=== PATIENT | male | born 1970 | race Caucasian/White ===

== ENCOUNTER 2017-10-13 07:40 | Observation (INO) ==
--- NOTE | 2017-10-13 08:01 | Emergency Department Note ---
ED Disposition Clinical Impression: A-fib Qualifiers: Atrial fibrillation type: paroxysmal Qualified Code(s): I48.0 - Paroxysmal atrial fibrillation Chest pain Qualifiers: Chest pain type: precordial pain Qualified Code(s): R07.2 - Precordial pain Disposition: Admitted as Observation Condition on Discharge: Good Referrals: Erasmo Harrison MD [Primary Care Provider] - - Critical Care Critical Care Time: No Attestation: On 10/13/17, the high probability of a clinically significant, sudden or life threatening deterioration of the following system(s) required my full and direct attention, intervention and personal management. The time I documented below is in addition to time spent performing reported procedures but includes the following listed in this critical care notation. Medical Decision Making - Medical Records Medical records reviewed: Yes: I reviewed the patient's medical records. - Ric Inquiry Pt receiving controlled substance: No Vital Signs: 10/13/17 07:41 Pulse Rate [Right Radial] 152 H Respiratory Rate 22 Blood Pressure [Right Arm] 146/99 Blood Pressure Mean [Right Arm] 114 Blood Pressure Source [Right Arm] Automatic Cuff Blood Pressure Position [Right Arm] Supine 02 Sat by Pulse Oximetry 100 Oxygen Delivery Method Room Air Orders (Tests/Meds): ED MEDICATIONS Generic Name Dose Route Start Last Admin Trade Name Freq PRN Reason Stop Dose Admin Aspirin 324 mg 10/13/17 07:57 Aspirin 81mg Chewable Tablet PO 10/13/17 07:58 ONCE ONE ORDERS Category Date Time Status Chest XR -- portable [XR chest portable] Stat Exams 10/13/17 07:52 Ordered Cardiac Enzymes Stat Lab 10/13/17 07:52 Ordered Complete Blood Count Auto Diff Stat Lab 10/13/17 07:52 Ordered Comprehensive Metabolic Panel Stat Lab 10/13/17 07:52 Ordered Thyroid Stimulating Hormone Stat Lab 10/13/17 07:52 Ordered - Radiology Data #1 Image(s): Chest Image Reviewed: Yes I reviewed the patient's radiology image Preliminary Findings: Normal/NAD - ECG Data Tracing #1 I reviewed this ECG and interpreted as documented below: ECG normal with no acute: arrhythmias, ischemia, conduction abnormalities, chamber hypertrophy Arrhythmias present: afib Ischemic changes: non-specific ST-T wave changes - Physician Consults Physician Consulted: [email or web address] Reason -: Admission Additional Consult: costa Reason -: Pt condition Chest Pain HPI - General Chief Complaint: Chest Pain Stated Complaint: chest pain Time Seen by Provider: 10/13/17 07:58 Mode of Arrival: Family Vehicle Source of Information: Patient, Spouse, Medical Record Limitations: No Limitations Description of Symptoms (Recalled from ER Triage Doc. by RN): PT C/O RIGHT CHEST PAIN WHEN HE COUGHS AND FEEL LIKE HIS HEART IS BEATING OUT OF HIS CHEST. PT STATES HE HAD THE SAME FEELING LASTNIGHT BUT IT QUIT AND RETURNED THIS MORNING. - History of Present Illness HPI narrative: pt with irreg ht rate and ant chest pain last pm and again this am - no known ht disease and has htn - MD complaint: chest pain indicative of cardiac Onset (ago): hour(s) Duration: intermittent Activity at onset: during rest Pain location: left chest Severity: moderate Quality: sharp Associated symptoms: palpitations Risk Factors for CAD: Hypertension, Family Hx of CAD Treatments prior to or on arrival for Cardiac Chest Pain: beta blockers - JACK Score Non-Stemi Age of patient: Less than 65 yrs Number of risk factors for CAD: Presence of 3 or more Prior coronary artery stenosis(seen in coronary angiography): Less than 50% ST-Segment deviation on ECG (more than 1 min): Absent Prior aspirin intake: ASA intake in the last 7 days Severe anginal chest pain: No or one episode in last 24 hours Elevated cardiac markers(CK-MB or troponin): Absent Non-Stemi Risk Score: 2 - Related Data Home Medications Medication Instructions Recorded Confirmed Aspirin 81 mg PO DAILY 10/13/17 10/13/17 Atorvastatin Calcium [Atorvastatin 10 mg PO DAILY 10/13/17 10/13/17 10mg Tab] Metoprolol Succinate 25 mg PO DAILY 10/13/17 10/13/17 Ubidecarenone/Vit E Acet [Co Q-10 1 each PO DAILY 10/13/17 10/13/17 100 mg Softgel] Allergies Allergy/AdvReac Type Severity Reaction Status Date / Time No Known Drug Allergies Allergy Unknown Verified 10/13/17 07:48 [NKDA] [facility] History I have reviewed the patient's past medical history: Yes Medical History: Denies:: Cancer, Diabetes Mellitus Type 1, Diabetes Mellitus Type 2, MRSA Amputation: No Fractures: No - Social History Alcohol Intake: current Alcohol Intake Frequency:: 3 or more drinks per day Substance Use Type: marijuana Last Used Substance: hours (ago) - Psychiatric History Expresses thoughts of harming self/others: None Suicide Plan Description: No Plan ROS Obtained: Yes All systems reviewed & no additional complaints - Constitutional Constitutional: Denies fever(s) - Eyes Eyes: Denies change in vision - ENT Ears, Nose, Mouth, and Throat: Denies sore throat - Cardiovascular Cardiovascular: Reports chest pain, Reports palpitations - Respiratory Respiratory: No cough - Gastrointestinal Gastrointestingal: Denies: abdominal pain - Genitourinary Male Genitourinary: Denies hematuria - Musculoskeletal Musculoskeletal: Denies joint pain - Integumentary/Breasts Skin/Breast: Denies rash - Neurologic Neurologic: Denies seizure-like activity Physical Exam - General General appearance: in no apparent distress - Head Head exam: normocephalic - Eye Eye exam: Present: PERRL, EOMI - ENT ENT exam: Present: mucous membranes moist - Neck Neck exam: Present: trachea midline - Respiratory Respiratory exam: Present: normal lung sounds bilaterally. Absent: respiratory distress - Cardiovascular Cardiovascular exam: Present: irregular rhythm, systolic murmur, other (no def bruits ) - Abdominal Exam Abdominal exam: Present: soft - Neurological Exam Neurological exam: Present: alert, oriented X3, CN II-XII intact - Psychiatric Psychiatric exam: Present: normal affect - Skin Skin exam: Present: rash
[2017-10-13 08:04] LABS: Basophils % 0.3 % (0.1-2.0); Eosinophils # 0.2 K/mm3 (0.0-0.4); Eosinophils % 2.3 % (0.1-12.0); Hematocrit 51.1 % (42.0-52.0); Lymphocytes # 3.1 K/mm3 (0.7-4.5); Lymphocytes % 45.9 K/mm3 (10-50); Mean Corpuscular HGB Conc 33.3 g/dL (31.8-35.4); Mean Corpuscular Hemoglobin 29.1 pg (27.0-31.2); Mean Corpuscular Volume 87.3 fl (80-94); Mean Platelet Volume 7.6 fl (7.4-10.4); Monocytes # 0.5 K/mm3 (0.1-1.0); Monocytes % 7.9 % (1.7-9.3); Neutrophils % 43.5 % (37.0-80.0); Platelet Count 273 K/mm3 (142-424); Red Blood Count 5.86 M/mm3 (4.60-6.20); Red Cell Distribution Width 14.7 % (11.5-17.5); White Blood Count 6.8 K/mm3 (4.8-10.8)
[2017-10-13 08:30] LABS: Alanine Aminotransferase 36 U/L (12-78); Albumin Level 3.9 gm/dL (3.4-5.0); Albumin/Globulin Ratio 1.1 (1.1-1.8); Alkaline Phosphatase 68 U/L (46-116); Anion Gap 15.3 mEq/L (5-15); Aspartate Amino Transferase 24 U/L (15-37); Bilirubin,Total 0.7 mg/dL (0.2-1.0); Blood Urea Nitrogen 16 mg/dL (7-18); Calcium 9.8 mg/dL (8.5-10.1); Carbon Dioxide 24 mmol/L (21.0-32.0); Chloride 106 mmol/L (98-107); Creatine Kinase 237 U/L (39-308); Globulin 3.6 gm/dl (1.3-3.2); Glucose 131 mg/dL (74-106); Potassium 3.3 mmoL/L (3.5-5.1); Sodium 142 mmol/L (136-145); Thyroid Stimulating Hormone 1.76 uIU/ml (0.358-3.740); Total Protein,Serum 7.5 gm/dL (6.4-8.2)
--- NOTE | 2017-10-13 09:05 | Consult Report ---
History of Present Illness Consult date: 10/13/17 Requesting physician: Erasmo Harrison Consult reason: atrial fibrillation Chief complaint: Chest pain, shortness of breath and dizziness Additional Medical History:: 1. Hypertension 2. Hyperlipidemia 3. Polysubstance abuse a. Marijuana (last used one day prior to admission) b. Alcohol use (2-3 beers daily and occasional more on weekends) 4. Strong family history of Coronary Disease (Father: age 50 [place]- living and Brother: 50 [place] living) 5. No history of Coronary Artery Disease, Atrial fibillation or CVA 6. Overweight History of present illness: 47 year old white male presents to emergency department with right sided chest pain and shortness of breath. 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 Pt woke up this morning with heavy shooting pain on the right side of the chest. Pt complained of increase shortness of breath with this episode of pain. Pt complained of "fullness in chest and felt like heart was racing" accompanied with dizziness. Pt stated pain was 5/10 on pain scale prior to arriving at the Emergency department. Pt denies chest pain or shortness of breath at this time. Initial EKG reveals Atrial Fibrillation with rate 125bpm. Pt's heart rate did rise to over 150bpm prior to initiating Cardizem (per ED physician). security monitor reveals sinus rhythm with intermittent atrial fibrillation with rate 110 -120's. Baseline labs in the Emergency department were unremarkable except of K 3.3 (L) and Troponin <0.02. D-dimer pending at this time. Pt admitted on Medical floor for new onset Atrial fibrillation, chest pain and shortness of breath. Pt placed on Cardizem drip Pt has no known history of coronary artery disease. Pt does have history of Hypertension and Hyperlipidemia , managed by daily medication regimen. Pt is a polysubstance abuser of marijuana and alcohol. Last usage of marijuana was one day ago. Drinks 2-3 beers daily and occasionally more on the weekends. Pt is a non-smoker. [facility] History Medical History: Reports:: Hyperlipidemia, Hypertension Denies:: Atrial Fibrillation, Cancer, Coronary Artery Disease, Cerebrovascular Accident, Diabetes Mellitus Type 1, Diabetes Mellitus Type 2, MRSA, Transient Ischemic Attacks (TIA) Other Medical History: Denies: Thyroid Disease, Unexplained Bleeding Other Surgeries: Yes: No Previous Surgery, Other. No: Angiogram, Angioplasty, Coronary Stent Amputation: No Fractures: No Comment: Hemrrhoid surgery - *Social History Alcohol Intake: current Alcohol Intake Frequency:: 3 or more drinks per day Substance Use Type: marijuana Last Used Substance: hours (ago), days (ago) - Psychiatric History Expresses thoughts of harming self/others: None Suicide Plan Description: No Plan Pschychiatric History:: Denies:: Anxiety *Family Hx:: Heart Attack Comment: father (50) [place]. Brother (50) [place] Meds Home Medications Medication Instructions Recorded Confirmed Type Aspirin 81 mg PO DAILY 10/13/17 10/13/17 History Atorvastatin Calcium [Atorvastatin 10 mg PO DAILY 10/13/17 10/13/17 History 10mg Tab] Metoprolol Succinate 25 mg PO DAILY 10/13/17 10/13/17 History Ubidecarenone/Vit E Acet [Co Q-10 1 each PO DAILY 10/13/17 10/13/17 History 100 mg Softgel] Allergies Allergy/AdvReac Type Severity Reaction Status Date / Time No Known Drug Allergies Allergy Unknown Verified 10/13/17 07:48 [NKDA] Review of Systems - Constitutional Reports fatigue - *Cardiovascular Reports chest pain, Reports chest pain at rest, Reports shortness of breath, Reports shortness of breath with activity, Reports irregular heart rhythm, Reports lightheadedness, Reports rapid, pounding, or irregular heartbeat, Reports fast heart rate - *Respiratory Reports cough, Reports shortness of breath, Reports shortness of breath with activity, Denies stridor, Denies wheezing - *Gastrointestinal Reports belching, Reports heartburn, Denies abdominal pain, Denies bloating, Denies constipation, Denies bright, red blood in stools - *Genitourinary Denies difficulty urinating - *Musculoskeletal Denies abnormal walking - Integumentary/Breasts Denies lesions - *Neurologic Reports dizziness, Denies seizure-like activity Exam Vital signs and Labs for Last 24 Hours: Temp Pulse Resp BP Pulse Ox 98.4 F 92 H 18 106/60 97 10/13/17 08:38 10/13/17 08:38 10/13/17 08:38 10/13/17 08:38 10/13/17 08:35 - Constitutional no acute distress, obese - *Routine Neck Exam Present: supple, full ROM, normal carotid upstroke, trachea midline. Absent: JVD, carotid bruit, swelling - *Routine Respiratory Exam Present: accessory muscle use. Absent: CTA bilaterally, rhonchi, stridor, wheezes, crackles - *Routine Cardiovascular Exam Present: RRR, Normal S1, Normal S2. Absent: murmur, gallop, rubs - *Routine Abdominal Exam Absent: tenderness, distended, guarding, mass - *Routine Extremities Exam Present: full ROM, pulses intact, normal capillary refill. Absent: cyanosis, clubbing, edema, calf tenderness, tenderness - *Routine Neurological Exam Present: alert, oriented X3, CN II-XII intact, moving all extremities, normal speech. Absent: tremors Assessment and Plan (1) Chest pain Start date: 10/13/17 Current visit: Yes Status: Acute Qualifiers: Chest pain type: precordial pain Qualified Code(s): R07.2 - Precordial pain Category: Medical Code(s): R07.9 - Chest pain, unspecified (2) A-fib Start date: 10/13/17 Current visit: Yes Status: Acute Qualifiers: Atrial fibrillation type: paroxysmal Qualified Code(s): I48.0 - Paroxysmal atrial fibrillation Category: Medical Code(s): I48.91 - Unspecified atrial fibrillation (3) Hypokalemia Current visit: Yes Status: Acute Category: Medical Code(s): E87.6 - Hypokalemia (4) HTN (hypertension) Current visit: Yes Status: Chronic Category: Medical Code(s): I10 - Essential (primary) hypertension (5) Hyperlipidemia Current visit: Yes Status: Chronic Category: Medical Code(s): E78.5 - Hyperlipidemia, unspecified - Assessment and plan all Dx Assessment and Plan for all problems:: Plan: 1. Increase Cardizem drip to 10mg/hr. 2. Obtain D-Dimer to rule out PE. 3. Continue Metoprolol 50mg po daily. 4. Echocardiogram to assess LV function and valve status. 5. Serial cardiac enzymes. 6. Supplement Potassium and obtain Magnesium level. 7. Lovenox 1mg/kg SQ every 12 hours.
--- NOTE | 2017-10-13 09:36 | History & Physical Report ---
*Admission Date: 10/13/17 *Chief complaint: chest pain *History of present illness: Mr. Tabares is a 47 year old white male with a history of HTN and HLP who presented to [facility] emergency department with chest pain and shortness of breath associated with palpitations, diaphoresis, and right hand numbness. He stated that he felt funny last PM with the palpitations and diaphoresis and just tried to ignore it. He did awaken during the night with the diaphoresis. 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 He also had anterior CP described as a heaviness and was dizziness. Pt at time of exam denied chest pain and shortness of breath. Patient noted that he has felt his heart palpate 1-2 times monthly. He did take a mini vacation last weekend and drank a little more than usual and smoked Marijuana. In the ER initial EKG revealed Atrial Fibrillation with rate 125bpm. Pt's heart rate did rise to over 150bpm prior to initiating Cardizem in the ER. Baseline labs in the Emergency department were unremarkable with except of K 3.3 (L). Troponin was <0.02 and TSH was normal. D-dimer was pending. Therefore patient was admitted for further evaluation and treatment [facility] History Medical History: Reports:: Hyperlipidemia, Hypertension Denies:: Arrhythmia, Atherosclerotic Heart Disease, Atrial Fibrillation, Cancer, Cardiomyopathy, Chronic Obstructive Pulmonary Disease (COPD), Coronary Artery Disease, Cerebrovascular Accident, Deep Vein Thrombosis, Depression, Diabetes Mellitus Type 1, Diabetes Mellitus Type 2, Gastroesophageal Reflux Disease(GERD), Hiatal Hernia, Lung Disease, MRSA, Myocardial Infarction, Peripheral Vascular Disease, Pulmonary Embolism, Renal Insufficiency, Seizures, Supraventricular Tachycardia Other Medical History: Denies: Anemia, Arthritis, Hypothyroidism, Liver Disease Other Surgeries: Yes: Hernia Repair Amputation: No Fractures: No Comment: hemorrhoidectomy 2017 - *Social History Smoking Status: Never smoker Alcohol Intake: current Alcohol Intake Frequency:: 3 or more drinks per day Substance Use Type: marijuana Last Used Substance: hours (ago) Occupational Status: employed Household Members: spouse - Psychiatric History Expresses thoughts of harming self/others: None Suicide Plan Description: No Plan *Family Hx:: Diabetes, Heart Attack, Hypertension Review of Systems - Constitutional Reports excessive sweating, Denies body ache(s), Denies chills, Denies fever(s) - ENT Reports dizziness, Denies ear pain, Denies sore throat - *Cardiovascular Reports chest pain, Reports excessive sweating, Reports shortness of breath, Reports irregular heart rhythm, Reports lightheadedness, Reports rapid, pounding , or irregular heartbeat, Reports fast heart rate, Denies leg pain with activity , Denies generalized swelling, Denies leg swelling, Denies radiating jaw, neck or arm pain - *Respiratory Reports shortness of breath, Denies chest congestion, Denies cough, Denies coughing up blood - *Gastrointestinal Denies change in bowel habits, Denies constipation, Denies heartburn, Denies nausea, Denies vomiting - *Genitourinary Denies difficulty urinating, Denies painful urination, Denies urinary frequency , Denies urinary hesitancy, Denies urinary incontinence - *Musculoskeletal Denies abnormal walking, Denies joint pain, Denies back pain, Denies muscle weakness, Denies body aches - *Neurologic Reports dizziness, Reports headache(s), Denies seizure-like activity Comments: headaches better since on BP med Meds Home Medications Medication Instructions Recorded Confirmed Type Aspirin 81 mg PO DAILY 10/13/17 10/13/17 History Atorvastatin Calcium [Atorvastatin 10 mg PO DAILY 10/13/17 10/13/17 History 10mg Tab] Metoprolol Succinate 25 mg PO DAILY 10/13/17 10/13/17 History Ubidecarenone/Vit E Acet [Co Q-10 1 each PO DAILY 10/13/17 10/13/17 History 100 mg Softgel] Allergies Allergy/AdvReac Type Severity Reaction Status Date / Time No Known Drug Allergies Allergy Unknown Verified 10/13/17 07:48 [NKDA] Exam Vital signs and Labs for Last 24 Hours: Temp Pulse Resp BP Pulse Ox 98.1 F 108 H 20 123/79 96 10/13/17 09:21 10/13/17 09:21 10/13/17 09:21 10/13/17 09:21 10/13/17 09:21 I & O for Last 24 hours: Intake & Output 10/10/17 10/11/17 10/12/17 10/13/17 11:59 11:59 11:59 11:59 Weight 257 lb Radiology Reports for the Last 24 Hours: 10/13/17 CXR MPRESSION: Negative chest, no acute finding - Constitutional no acute distress Comments: Appears comfortable lying on stretcher in the ER - *Routine HEENT Exam Head: Present: normocephalic, atraumatic Eye: Present: PERRL. Absent: conjunctival icterus, scleral injection ENT: Present: mucous membranes moist, oropharynx clear, dentition normal, nares patent - *Routine Neck Exam Present: supple, full ROM. Absent: carotid bruit, lymphadenopathy, thyromegaly - *Routine Respiratory Exam Present: CTA bilaterally (A&P). Absent: accessory muscle use - *Routine Cardiovascular Exam Present: irregular rhythm Comments: Monitor showing AT fib with varying Vrate 80-120 - *Routine Abdominal Exam Present: soft, normoactive bowel sounds. Absent: tenderness, guarding - *Routine Extremities Exam Present: pulses intact. Absent: edema, calf tenderness - *Routine Neurological Exam Present: alert, oriented X3 Assessment and Plan (1) A-fib Start date: 10/13/17 Current visit: Yes Status: Acute Qualifiers: Atrial fibrillation type: paroxysmal Qualified Code(s): I48.0 - Paroxysmal atrial fibrillation Category: Medical Code(s): I48.91 - Unspecified atrial fibrillation (2) Chest pain Start date: 10/13/17 Current visit: Yes Status: Acute Qualifiers: Chest pain type: precordial pain Qualified Code(s): R07.2 - Precordial pain Category: Medical Code(s): R07.9 - Chest pain, unspecified (3) HTN (hypertension) Current visit: Yes Status: Chronic Category: Medical Code(s): I10 - Essential (primary) hypertension (4) Hyperlipidemia Current visit: Yes Status: Chronic Category: Medical Code(s): E78.5 - Hyperlipidemia, unspecified (5) Hypokalemia Current visit: Yes Status: Acute Category: Medical Code(s): E87.6 - Hypokalemia - Assessment and plan all Dx Assessment and Plan for all problems:: Patient has been seen by cardiology. He is on a cardizem gtt and had an ECHO with pending results. Will follow Cardiology recommendations. He has been started on K+ for a low K+; will be started on Lovenox and obtain MG++
--- NOTE | 2017-10-13 09:48 | Pharmacy Consult Notes ---
[facility] Pharmacy VTE Monitoring - Patient Demographics Admission date: 10/13/17 Report Date: 10/13/17 Time: 09:48 Allergies/Adverse Reactions: Patient Allergies No Known Drug Allergies [NKDA] Allergy (Unknown, Verified 10/13/17 07:48) Height: 1.83 m Weight: 116.573 kg Patient Problems: Current Active Problems A-fib (Acute) Chest pain (Acute) - VTE Risk Labs: VTE Related Lab Results Hgb 17.0 g/dL (14.1-18.0) 10/13/17 07:50 Hct 51.1 % (42.0-52.0) 10/13/17 07:50 Plt Count 273 K/mm3 (142-424) 10/13/17 07:50 BUN 16 mg/dL (7-18) 10/13/17 07:50 Creatinine 1.11 mg/dL (0.70-1.30) 10/13/17 07:50 Estimated Creat Clear 133 mL/min (0-300) 10/13/17 07:50 Was VTE Risk Assessment Performed: Yes VTE Risk Level: Low Risk Clinical Trial Participant: No - Prophylaxis VTE Prophylaxis Ordered?: Yes Types of VTE Prophylaxis: TEDS Knee High
--- NOTE | 2017-10-13 19:19 | Progress Note ---
Internal Medicine - PN: Subj *Date: 10/13/17 *Time: 19:18 Interval history: He has converted to normal sinus rhythm. This occurred about 5 PM. EKG will be obtained. He is comfortable and in no acute distress. Exam Vital signs and Labs for Last 24 Hours: Temp Pulse Resp BP Pulse Ox 98.1 F 67 18 119/87 96 10/13/17 09:21 10/13/17 18:00 10/13/17 18:00 10/13/17 18:00 10/13/17 18:00 Laboratory Results - last 24 hr 10/13/17 09:22: Troponin I < 0.02 10/13/17 12:18: Troponin I < 0.02 I & O for Last 24 hours: Intake & Output 10/11/17 10/12/17 10/13/17 10/14/17 11:59 11:59 11:59 11:59 Intake Total 993 / 993 Output Total 600 / 600 Balance 393 / 393 Weight 257 lb Assessment and Plan (1) A-fib Start date: 10/13/17 Current visit: Yes Status: Acute Qualifiers: Atrial fibrillation type: paroxysmal Qualified Code(s): I48.0 - Paroxysmal atrial fibrillation Category: Medical Code(s): I48.91 - Unspecified atrial fibrillation (2) Chest pain Start date: 10/13/17 Current visit: Yes Status: Acute Qualifiers: Chest pain type: precordial pain Qualified Code(s): R07.2 - Precordial pain Category: Medical Code(s): R07.9 - Chest pain, unspecified (3) Hypokalemia Current visit: Yes Status: Acute Category: Medical Code(s): E87.6 - Hypokalemia (4) HTN (hypertension) Current visit: Yes Status: Chronic Category: Medical Code(s): I10 - Essential (primary) hypertension (5) Hyperlipidemia Current visit: Yes Status: Chronic Category: Medical Code(s): E78.5 - Hyperlipidemia, unspecified
--- NOTE | 2017-10-13 20:17 | Cardiology Report ---
PROCEDURE: 2-D M-mode and color Doppler study INDICATIONS FOR THE TEST: Chest painX COPD Heart Murmur Tobacco Smoking PalpitationsX Fatigue Syncope Edema HypertensionXDiabetes Mellitus Rheumatic Fever SOBXDOE Obesity Hyperlipidemia Family History HDX Additional History NOS AF/FLUTTER RVR PATIENT INFORMATION HEIGHT: 73 WEIGHT:250 GENDER: Male B/P:146/99 2-D/M-MODE INTERPRETATION: 2-D MEASUREMENTS OBSERVED VALUES IN CMS Right Ventricular Dimension (RVDd) 3.0 Interventricular Septum (Thickness)(IVsd) 1.4 Left Ventricular Internal Dimensions(LVIDd) 4.2 Left Ventricular Posterior Wall (Thickness)(LVPWd) 1.2 Aortic Root 3.4 Aortic Cusp Separation 2.7 Left Atrial Dimensions (LAD) 4.0 2D 1. Left atrium is mildly enlarged, left ventricle is normal size, there is mild concentric left ventricular hypertrophy, visually estimated ejection fraction 55% with no obvious regional wall motion abnormality. 2. The right atrium and right ventricle are normal size and contractility. 3. The aortic valve is minimally thickened and fibrosed. 4. The mitral and tricuspid valvular grossly normal. 5. The pulmonic valve is poorly visualized. 6. Significant pericardial effusion noted. DOPPLER INTERROGATION: Doppler interrogation of the aortic, mitral and tricuspid valvular presence of mild mitral and tricuspid regurgitation, tricuspid and enteric velocity insufficient for calculation of the right ventricular systolic pressure, diastolic parameters are inconclusive. CONCLUSION: 1. Mildly enlarged left atrium, normal left ventricular size, mild concentric left ventricular hypertrophy, visually estimated ejection fraction 55% with no obvious regional wall motion abnormality, diastolic parameters are inconclusive. 2. Mild mitral and tricuspid regurgitation 3. Significant pericardial effusion noted.
[2017-10-14 04:48] VITALS: BP 93/58
[2017-10-14 05:47] LABS: Basophils % 0.4 % (0.1-2.0); Eosinophils # 0.1 K/mm3 (0.0-0.4); Eosinophils % 2.4 % (0.1-12.0); Hematocrit 43.9 % (42.0-52.0); Lymphocytes # 2.4 K/mm3 (0.7-4.5); Lymphocytes % 41.1 K/mm3 (10-50); Mean Corpuscular Hemoglobin 29.4 pg (27.0-31.2); Mean Corpuscular Volume 89.1 fl (80-94); Mean Platelet Volume 7.9 fl (7.4-10.4); Monocytes # 0.4 K/mm3 (0.1-1.0); Monocytes % 6.1 % (1.7-9.3); Neutrophils # 2.9 K/mm3 (1.8-7.8); Neutrophils % 49.9 % (37.0-80.0); Platelet Count 225 K/mm3 (142-424); Red Blood Count 4.93 M/mm3 (4.60-6.20); Red Cell Distribution Width 14.7 % (11.5-17.5); White Blood Count 5.9 K/mm3 (4.8-10.8)
[2017-10-14 05:57] LABS: Hemoglobin 14.5 g/dL (14.1-18.0)
[2017-10-14 05:58] LABS: Anion Gap 11.2 mEq/L (5-15); Chol/HDL Ratio 2.1 (1-3.5); Potassium 4.2 mmoL/L (3.5-5.1)
--- NOTE | 2017-10-14 07:38 | Progress Note ---
Internal Medicine - PN: Subj *Date: 10/14/17 *Time: 07:35 Interval history: Patient has converted to normal sinus rhythm. Patient states he can tell when he actually did change his rhythm. He has had no further chest pain or shortness of breath. He ate without problems. He slept at intervals. He is ready to go home. Echo revealed significant pericardial effusion. Exam Vital signs and Labs for Last 24 Hours: Temp Pulse Resp BP Pulse Ox 98.1 F 51 L 17 93/58 95 10/14/17 04:00 10/14/17 04:00 10/14/17 04:00 10/14/17 04:00 10/14/17 04:00 Laboratory Results - last 24 hr 10/13/17 09:22: Troponin I < 0.02 10/13/17 12:18: Troponin I < 0.02 10/14/17 05:35: WBC 5.9, RBC 4.93, Hgb 14.5 D, Hct 43.9, MCV 89.1, MCH 29.4, MCHC 33.0, RDW 14.7, Plt Count 225, MPV 7.9, Neut % (Auto) 49.9, Lymph % (Auto) 41.1, [place] % (Auto) 6.1, Eos % (Auto) 2.4, Baso % (Auto) 0.4, Neut # (Auto) 2.9 , Lymph # (Auto) 2.4, [place] # (Auto) 0.4, Eos # (Auto) 0.1, Baso # (Auto) 0.0 10/14/17 05:35: Sodium 143, Potassium 4.2 D, Chloride 110 H, Carbon Dioxide 26 , Anion Gap 11.2, BUN 13, Creatinine 0.97, Estimated Creat Clear 157, Estimated GFR 83, Est GFR ( Amer) 101, Glucose 106, Magnesium 2.1, Triglycerides 102, Cholesterol 120 L, LDL Cholesterol 44, VLDL Cholesterol 20, HDL Cholesterol 56, Cholesterol/HDL Ratio 2.1 I & O for Last 24 hours: Intake & Output 10/11/17 10/12/17 10/13/17 10/14/17 11:59 11:59 11:59 11:59 Intake Total 1539 / 1539 Output Total 600 / 600 Balance 939 / 939 Weight 257 lb 256 lb 7 oz Radiology Reports for the Last 24 Hours: 10/13/2017 echocardiogram CONCLUSION: 1. Mildly enlarged left atrium, normal left ventricular size, mild concentric left ventricular hypertrophy, visually estimated ejection fraction 55% with no obvious regional wall motion abnormality, diastolic parameters are inconclusive. 2. Mild mitral and tricuspid regurgitation 3. Significant pericardial effusion noted. - Constitutional no acute distress Comments: Sitting up in the bed and has completed his breakfast. He appears comfortable. - *Routine Respiratory Exam Present: CTA bilaterally (Anteriorly and posteriorly) - *Routine Cardiovascular Exam Present: RRR Comments: Monitor showing normal sinus rhythm and sinus bradycardia. - *Routine Extremities Exam Present: pulses intact. Absent: edema, calf tenderness - *Routine Neurological Exam Present: alert, oriented X3 Assessment and Plan (1) A-fib Start date: 10/13/17 Current visit: Yes Status: Acute Qualifiers: Atrial fibrillation type: paroxysmal Qualified Code(s): I48.0 - Paroxysmal atrial fibrillation Category: Medical Code(s): I48.91 - Unspecified atrial fibrillation (2) Chest pain Start date: 10/13/17 Current visit: Yes Status: Acute Qualifiers: Chest pain type: precordial pain Qualified Code(s): R07.2 - Precordial pain Category: Medical Code(s): R07.9 - Chest pain, unspecified (3) Hypokalemia Current visit: Yes Status: Acute Category: Medical Code(s): E87.6 - Hypokalemia (4) HTN (hypertension) Current visit: Yes Status: Chronic Category: Medical Code(s): I10 - Essential (primary) hypertension (5) Hyperlipidemia Current visit: Yes Status: Chronic Category: Medical Code(s): E78.5 - Hyperlipidemia, unspecified (6) Pericardial effusion Current visit: Yes Status: Acute Category: Medical Code(s): I31.3 - Pericardial effusion (noninflammatory) - Assessment and plan all Dx Assessment and Plan for all problems:: Will follow cardiology recommendations. Possibly home today.
--- NOTE | 2017-10-14 09:17 | Progress Note ---
Internal Medicine - PN: Subj *Date: 10/14/17 *Time: 09:16 Exam Vital signs and Labs for Last 24 Hours: Temp Pulse Resp BP Pulse Ox 98.1 F 51 L 17 93/58 95 10/14/17 04:00 10/14/17 04:00 10/14/17 04:00 10/14/17 04:00 10/14/17 04:00 Laboratory Results - last 24 hr 10/13/17 09:22: Troponin I < 0.02 10/13/17 12:18: Troponin I < 0.02 10/14/17 05:35: WBC 5.9, RBC 4.93, Hgb 14.5 D, Hct 43.9, MCV 89.1, MCH 29.4, MCHC 33.0, RDW 14.7, Plt Count 225, MPV 7.9, Neut % (Auto) 49.9, Lymph % (Auto) 41.1, [place] % (Auto) 6.1, Eos % (Auto) 2.4, Baso % (Auto) 0.4, Neut # (Auto) 2.9 , Lymph # (Auto) 2.4, [place] # (Auto) 0.4, Eos # (Auto) 0.1, Baso # (Auto) 0.0 10/14/17 05:35: Sodium 143, Potassium 4.2 D, Chloride 110 H, Carbon Dioxide 26 , Anion Gap 11.2, BUN 13, Creatinine 0.97, Estimated Creat Clear 157, Estimated GFR 83, Est GFR ( Amer) 101, Glucose 106, Magnesium 2.1, Triglycerides 102, Cholesterol 120 L, LDL Cholesterol 44, VLDL Cholesterol 20, HDL Cholesterol 56, Cholesterol/HDL Ratio 2.1 10/14/17 05:35: Uric Acid 6.7 I & O for Last 24 hours: Intake & Output 10/11/17 10/12/17 10/13/17 10/14/17 11:59 11:59 11:59 11:59 Intake Total 1539 / 1539 Output Total 600 / 600 Balance 939 / 939 Weight 257 lb 256 lb 7 oz Assessment and Plan (1) A-fib Start date: 10/13/17 Current visit: Yes Status: Acute Qualifiers: Qualified Code(s): I48.0 - Paroxysmal atrial fibrillation Category: Medical Code(s): I48.91 - Unspecified atrial fibrillation (2) Chest pain Start date: 10/13/17 Current visit: Yes Status: Acute Qualifiers: Qualified Code(s): R07.2 - Precordial pain Category: Medical Code(s): R07.9 - Chest pain, unspecified (3) Hypokalemia Current visit: Yes Status: Acute Category: Medical Code(s): E87.6 - Hypokalemia (4) HTN (hypertension) Current visit: Yes Status: Chronic Category: Medical Code(s): I10 - Essential (primary) hypertension (5) Hyperlipidemia Current visit: Yes Status: Chronic Category: Medical Code(s): E78.5 - Hyperlipidemia, unspecified
--- NOTE | 2017-10-14 09:24 | Progress Note ---
Subjective Date: 10/14/17 Time: 09:16 Principal diagnosis: A. fib Interval history: 47 yo white male in bed in no acute distress. Patient did convert to normal sinus rhythm yesterday and IV Cardizem was switched to oral dosing. Patient has had no chest pain overnight. Cardiac troponins returned normal 3. Echocardiogram showed normal left ventricular size and function without significant valve disease. Exam Vital signs and Labs for Last 24 Hours: Temp Pulse Resp BP Pulse Ox 98.1 F 51 L 17 93/58 95 10/14/17 04:00 10/14/17 04:00 10/14/17 04:00 10/14/17 04:00 10/14/17 04:00 Laboratory Results - last 24 hr 10/13/17 09:22: Troponin I < 0.02 10/13/17 12:18: Troponin I < 0.02 10/14/17 05:35: WBC 5.9, RBC 4.93, Hgb 14.5 D, Hct 43.9, MCV 89.1, MCH 29.4, MCHC 33.0, RDW 14.7, Plt Count 225, MPV 7.9, Neut % (Auto) 49.9, Lymph % (Auto) 41.1, [place] % (Auto) 6.1, Eos % (Auto) 2.4, Baso % (Auto) 0.4, Neut # (Auto) 2.9 , Lymph # (Auto) 2.4, [place] # (Auto) 0.4, Eos # (Auto) 0.1, Baso # (Auto) 0.0 10/14/17 05:35: Sodium 143, Potassium 4.2 D, Chloride 110 H, Carbon Dioxide 26 , Anion Gap 11.2, BUN 13, Creatinine 0.97, Estimated Creat Clear 157, Estimated GFR 83, Est GFR ( Amer) 101, Glucose 106, Magnesium 2.1, Triglycerides 102, Cholesterol 120 L, LDL Cholesterol 44, VLDL Cholesterol 20, HDL Cholesterol 56, Cholesterol/HDL Ratio 2.1 10/14/17 05:35: Uric Acid 6.7 I & O for Last 24 hours: Intake & Output 10/11/17 10/12/17 10/13/17 10/14/17 11:59 11:59 11:59 11:59 Intake Total 1539 / 1539 Output Total 600 / 600 Balance 939 / 939 Weight 257 lb 256 lb 7 oz - *Routine Respiratory Exam Present: CTA bilaterally - *Routine Cardiovascular Exam Present: RRR. Absent: murmur, gallop Progress Note: A&P (1) A-fib Status: Acute Current Visit: Yes (2) Chest pain Status: Acute Current Visit: Yes (3) Hypokalemia Status: Acute Current Visit: Yes (4) HTN (hypertension) Status: Chronic Current Visit: Yes (5) Hyperlipidemia Status: Chronic Current Visit: Yes Assessment and Plan for All Diagnoses:: Okay from a cardiology standpoint for discharge home. Patient will be placed on anticoagulation and continue aspirin 81 mg daily along with home dosing of beta-santi with addition of Cardizem CD 240 mg daily. He will continue his statin therapy. Recommend follow-up in 1 week. We will schedule stressing at that time.
--- NOTE | 2017-10-14 20:57 | Discharge Summary ---
General - General Admission date: 10/13/17 Discharge date: 10/14/17 HPI HPI: Mr. Tabares is a 47 year old white male with a history of HTN and HLP who presented to [facility] emergency department with chest pain and shortness of breath associated with palpitations, diaphoresis, and right hand numbness. He stated that he felt funny last PM with the palpitations and diaphoresis and just tried to ignore it. He did awaken during the night with the diaphoresis. 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 He also had anterior CP described as a heaviness and was dizzy. Pt at time of exam denied chest pain and shortness of breath. Patient noted that he has felt his heart palpate 1-2 times monthly. He did take a mini vacation last weekend and drank a little more than usual and smoked Marijuana. In the ER, initial EKG revealed Atrial Fibrillation with rate 125bpm. Pt's heart rate did rise to over 150bpm prior to initiating Cardizem in the ER. Baseline labs in the Emergency department were unremarkable with except of K 3.3 (L). Troponin was <0.02 and TSH was normal. D-dimer was pending. Therefore patient was admitted for further evaluation and treatment Hospital Course Hospital Course: The patient was started on a cardizem drip and was seen by cardiology. An echo was ordered. He was started on potassium supplementation. He was also started on lovenox. The patient did convert to NSR and the cardizem drip was switched to PO cardizem. All of his troponins were normal. He had no further CP or SOA. His echo showed an EF of 55%. He was stable to be discharged home on anticoagulation as well as aspirin 81 mg daily along with his home dosing of a beta-santi. Cardizem CD 240 mg was added daily. He will continue his statin therapy. He will follow-up in 1 week with cardiology and they will schedule a stress test at that time. Objective Vital signs: Temp Pulse Resp BP Pulse Ox 98.1 F 60 17 93/58 95 10/14/17 04:00 10/14/17 08:00 10/14/17 04:00 10/14/17 04:00 10/14/17 04:00 Narrative: - Constitutional no acute distress Comments: Appears comfortable lying on stretcher in the ER - *Routine HEENT Exam Head: Present: normocephalic, atraumatic Eye: Present: PERRL. Absent: conjunctival icterus, scleral injection ENT: Present: mucous membranes moist, oropharynx clear, dentition normal, nares patent - *Routine Neck Exam Present: supple, full ROM. Absent: carotid bruit, lymphadenopathy, thyromegaly - *Routine Respiratory Exam Present: CTA bilaterally (A&P). Absent: accessory muscle use - *Routine Cardiovascular Exam Present: irregular rhythm Comments: Monitor showing AT fib with varying Vrate 80-120 - *Routine Abdominal Exam Present: soft, normoactive bowel sounds. Absent: tenderness, guarding - *Routine Extremities Exam Present: pulses intact. Absent: edema, calf tenderness - *Routine Neurological Exam Present: alert, oriented X3 Results Labs on day of discharge: Labs from last 24 hours 10/14/17 10/14/17 10/14/17 05:35 05:35 05:35 WBC RBC Hgb Hct MCV MCH MCHC RDW Plt Count MPV Neut % (Auto) Lymph % (Auto) [place] % (Auto) Eos % (Auto) Baso % (Auto) Neut # (Auto) Lymph # (Auto) [place] # (Auto) Eos # (Auto) Baso # (Auto) ESR 6 Sodium 143 Potassium 4.2 D Chloride 110 H Carbon Dioxide 26 Anion Gap 11.2 BUN 13 Creatinine 0.97 Estimated Creat Clear 157 Estimated GFR 83 Est GFR ( Amer) 101 Glucose 106 Uric Acid 6.7 Magnesium 2.1 Triglycerides 102 Cholesterol 120 L LDL Cholesterol 44 VLDL Cholesterol 20 HDL Cholesterol 56 Cholesterol/HDL Ratio 2.1 10/14/17 05:35 WBC 5.9 RBC 4.93 Hgb 14.5 D Hct 43.9 MCV 89.1 MCH 29.4 MCHC 33.0 RDW 14.7 Plt Count 225 MPV 7.9 Neut % (Auto) 49.9 Lymph % (Auto) 41.1 [place] % (Auto) 6.1 Eos % (Auto) 2.4 Baso % (Auto) 0.4 Neut # (Auto) 2.9 Lymph # (Auto) 2.4 [place] # (Auto) 0.4 Eos # (Auto) 0.1 Baso # (Auto) 0.0 ESR Sodium Potassium Chloride Carbon Dioxide Anion Gap BUN Creatinine Estimated Creat Clear Estimated GFR Est GFR ( Amer) Glucose Uric Acid Magnesium Triglycerides Cholesterol LDL Cholesterol VLDL Cholesterol HDL Cholesterol Cholesterol/HDL Ratio DS: Diagnosis - Discharge Diagnosis (1) A-fib Status: Acute (2) Chest pain Status: Acute (3) Hypokalemia Status: Acute (4) HTN (hypertension) Status: Chronic (5) Hyperlipidemia Status: Chronic Discharge Plan - Patient Discharge Instructions ACTIVITY: Continue current activity DIET: low fat, low cholesterol Patient Instructions: High Triglycerides, Atrial Fibrillation, High Blood Pressure, DI for Chest Pain - Follow up Plan Follow up with: Erasmo Harrison MD [Primary Care Provider] - Disposition: Home, Self-Long-Term Medications: Home Medications Medication Instructions Recorded Confirmed Type Aspirin 81 mg PO DAILY 10/13/17 10/13/17 History Atorvastatin Calcium [Atorvastatin 10 mg PO HS 10/13/17 10/13/17 History 10mg Tab] Metoprolol Succinate 25 mg PO HS 10/13/17 10/13/17 History Ubidecarenone/Vit E Acet [Co Q-10 1 each PO DAILY 10/13/17 10/13/17 History 100 mg Softgel] Prescriptions/Medication Reconciliation: New dilTIAZem HCl [Cardizem ER 240mg Capsule] 240 mg PO DAILY #30 cap.er.24h Rivaroxaban [Xarelto] 20 mg PO DAILY 30 Days tablet Continue Metoprolol Succinate 25 mg PO HS Atorvastatin Calcium [Atorvastatin 10mg Tab] 10 mg PO HS Aspirin 81 mg PO DAILY Ubidecarenone/Vit E Acet [Co Q-10 100 mg Softgel] 1 each PO DAILY
[2017-10-15 13:14] LABS: Anti-Smith Antibody <0.2 AI (0.0-0.9)
== END 2017-10-14 12:47 | disposition home or self-care (01) ==
LOC: ER 07:40 → 2ND 07:40
PROVIDERS: ADMIT Family Medicine; ATTEND Family Medicine

== ENCOUNTER → 2017-11-02 08:20 | Outpatient (CLI) | payer MEDICAID, SELFPAY | PROVIDERS: Family Provider Family Medicine; PCP Family Medicine; Visit Provider Internal Medicine | DX: I48.0 Paroxysmal atrial fibrillation (principal); R00.2 Palpitations; I10 Essential (primary) hypertension; E78.4 Other hyperlipidemia; Z82.49 Family history of ischemic heart disease and other diseases of the circulatory system | CPT/HCPCS: 93017 ==

== ENCOUNTER → 2018-12-20 09:50 | Outpatient (POV) | payer MEDICAID, SELFPAY | PROVIDERS: Visit Provider Specialist | DX: R53.1 Weakness (principal); R20.0 Anesthesia of skin | CPT/HCPCS: 95886; 95908 ==

== ENCOUNTER → 2020-07-11 13:25 | Outpatient (CLI) | payer OTHER, SELFPAY ==
--- NOTE | 2020-07-11 13:31 | XR_ITS ---
PROCEDURE: XR WRIST RT MIN 3V CLINICAL INDICATION: right wrist pain/ CTS COMPARISON: No exams were available for comparison FINDINGS: No fracture or dislocation. No lytic or blastic change. There is normal mineralization. The joint spaces are well-preserved. No significant degenerative/arthritic changes. No erosive changes evident. Other findings:None. IMPRESSION: No acute findings. Dictated by: Bakari Lazar MD 07/11/2020 17:45 Bakari Lazar MD in [place] 07/11/2020 17:45
== END ==
PROVIDERS: PCP Family Medicine; Visit Provider Orthopaedic Surgery
DX: M25.531 Pain in right wrist (principal)
CPT/HCPCS: 73110

== ENCOUNTER 2020-10-12 23:26 | Emergency (ER) | payer OTHER, SELFPAY ==
[2020-10-12 23:28] VITALS: BP 151/90; PULSE 84; RESP 17; TEMP 36.6; O2SAT 95; BMI 33.9
--- NOTE | 2020-10-12 23:31 | [facility].EDGENADL ---
ED Disposition Clinical Impression: Vomiting Qualifiers: Vomiting type: unspecified Vomiting Intractability: non-intractable Nausea presence: with nausea Qualified Code(s): R11.2 - Nausea with vomiting, unspecified Disposition: Home, Self-Care Condition on Discharge: Good Additional Instructions: Take Zofran as needed for vomiting. Use Tylenol/ibuprofen for body aches or low-grade fevers you may experience. Please drink plenty of clear fluids and follow a bland diet over the next several days. Please report back to our emergency department immediately if any intractable nausea/vomiting, concern for dehydration, high fever/chills, recurrent chest pain, shortness of breath, diaphoresis, or other new concerning symptoms. Otherwise, please follow-up with your primary care doctor for repeat examination in several days to ensure resolution of symptoms Prescriptions: Ondansetron [Zofran 4mg ODT] 4 mg PO TIDP PRN #12 tab PRN Reason: Vomiting Transmission Status: Pending to [id number] Referrals: Erasmo Harrison MD [Primary Care Provider] - - Critical Care Critical Care Time: No Attestation: On , the high probability of a clinically significant, sudden or life threatening deterioration of the following system(s) required my full and direct attention, intervention and personal management. The time I documented below is in addition to time spent performing reported procedures but includes the following listed in this critical care notation. Medical Decision Making - Medical Records Medical records reviewed: Yes: I reviewed the patient's medical records. - Ric Inquiry Pt receiving controlled substance: No Vital Signs: 10/12/20 23:28 10/13/20 00:30 10/13/20 01:00 Temperature 97.8 F Temperature Source Oral Pulse Rate 80 76 Pulse Rate [Right Brachial] 84 Respiratory Rate 17 Blood Pressure 152/99 H 149/101 H Blood Pressure [Right Arm] 151/90 H Blood Pressure Mean 116 113 Blood Pressure Mean [Right Arm] 110 Blood Pressure Source [Right Arm] Automatic Cuff 02 Sat by Pulse Oximetry 95 97 98 Oxygen Delivery Method Room Air Room Air Room Air 10/13/20 01:30 Temperature Temperature Source Pulse Rate 75 Pulse Rate [Right Brachial] Respiratory Rate 17 Blood Pressure 140/93 H Blood Pressure [Right Arm] Blood Pressure Mean 107 Blood Pressure Mean [Right Arm] Blood Pressure Source [Right Arm] 02 Sat by Pulse Oximetry 98 Oxygen Delivery Method - Lab Data Lab Results 10/12/20 23:35: WBC 8.8, RBC 5.42, Hgb 16.5, Hct 49.0, MCV 90.3, MCH 30.5, MCHC 33.7, RDW 12.9, Plt Count 244, MPV 7.3 L, Neut % (Auto) 85.9 H, Lymph % (Auto) 8.8 L, [place] % (Auto) 3.7, Eos % (Auto) 1.4, Baso % (Auto) 0.1, Neut # (Auto) 7.6, Lymph # (Auto) 0.8, [place] # (Auto) 0.3, Eos # (Auto) 0.1, Baso # (Auto) 0.0 10/12/20 23:35: Sodium 135 L, Potassium 4.1, Chloride 100, Carbon Dioxide 26, Anion Gap 13.1, BUN 18, Creatinine 0.90, Estimated Creat Clear 159, Estimated GFR 90, Est GFR ( Amer) 109, Glucose 120 H, Calcium 9.7, Total Bilirubin 1.3, AST 48, ALT 32, Alkaline Phosphatase 68, Troponin I < 0.01, Total Protein 7.5, Albumin 4.7, Globulin 2.8, Albumin/Globulin Ratio 1.7, Amylase 48, Lipase 51 Result diagrams: 10/12/20 23:35 10/12/20 23:35 Orders (Tests/Meds): ED MEDICATIONS Generic Name Dose Route Start Last Admin Trade Name Freq PRN Reason Stop Dose Admin Lactated Ringer's 1,000 mls @ 999 mls/hr 10/13/20 00:15 10/13/20 00:07 Lactated Ringer's 1000 Ml Bag IV 10/13/20 01:15 999 mls/hr .Q1H1M KHOI Administration Discontinued Medications Generic Name Dose Route Start Last Admin Trade Name Freq PRN Reason Stop Dose Admin Ondansetron HCl 4 mg 10/13/20 00:04 10/13/20 00:07 Ondansetron 4mg/2ml Vial IV 10/13/20 00:05 4 mg ONCE ONE Administration ORDERS Category Date Time Status XR chest 2V Stat Exams 10/13/20 23:54 Taken Complete Blood Count Auto Diff Stat Lab
--- NOTE | 2020-10-12 23:37 | ECG_ITS ---
APPROVED REPORT Exam: Resting ECG HR:77 bpm ECG Measurements Heart Rate 77 AXES IN 176 P 61 QRSd 96 QRS 68 QT 376 T 18 QTc 425 Conclusion Normal sinus rhythm Normal ECG Electronically signed by : Manuel Kelly, 10/13/2020 08:39:07
[2020-10-13 00:23] LABS: Alanine Aminotransferase 32 U/L (12-78); Albumin Level 4.7 g/dl (3.5-5.0); Albumin/Globulin Ratio 1.7 (1.1-1.8); Alkaline Phosphatase 68 U/L (38-126); Amylase 48 U/L (30-110); Anion Gap 13.1 mEq/L (5-15); Aspartate Amino Transferase 48 U/L (17-59); Bilirubin,Total 1.3 mg/dl (0.2-1.3); Blood Urea Nitrogen 18 mg/dl (9-20); Calcium 9.7 mg/dl (8.4-10.2); Carbon Dioxide 26 mmol/L (22.0-30.0); Chloride 100 mmol/L (98-107); Creatinine Clearance Estimated 159 mL/min (50-200); Estimated Glomerular Filt Rate 90 ml/min (>60); GFR (African American) 109 ML/MIN (>60); Globulin 2.8 g/dL (1.3-3.2); Glucose 120 mg/dl (74-100); Lipase 51 U/L (23-300); Potassium 4.1 mmoL/L (3.5-5.1); Sodium 135 mmol/L (136-145); Total Protein,Serum 7.5 g/dl (6.3-8.2)
[2020-10-13 00:28] LABS: Basophils % 0.1 % (0.1-2.0); Eosinophils # 0.1 K/mm3 (0.0-0.4); Eosinophils % 1.4 % (0.1-12.0); Hemoglobin 16.5 g/dL (14.1-18.0); Lymphocytes # 0.8 K/mm3 (0.7-4.5); Lymphocytes % 8.8 % (10-50); Mean Corpuscular HGB Conc 33.7 g/dL (31.8-35.4); Mean Corpuscular Hemoglobin 30.5 pg (27.0-31.2); Mean Corpuscular Volume 90.3 fl (80-94); Mean Platelet Volume 7.3 fl (7.4-10.4); Monocytes # 0.3 K/mm3 (0.1-1.0); Monocytes % 3.7 % (1.7-9.3); Neutrophils # 7.6 K/mm3 (1.8-7.8); Neutrophils % 85.9 % (37.0-80.0); Platelet Count 244 K/mm3 (142-424); Red Blood Count 5.42 M/mm3 (4.60-6.20); Red Cell Distribution Width 12.9 % (11.5-17.5); White Blood Count 8.8 K/mm3 (4.8-10.8)
[2020-10-13 00:30] VITALS: BP 152/99; PULSE 80; O2SAT 97
[2020-10-13 00:30] LABS: MANUAL DIFFERENTIAL MANUAL DIFFERENTIAL (MANUAL DIFF)
[2020-10-13 00:58] LABS: Troponin I < 0.01 ng/ml (0.00-0.034)
[2020-10-13 01:00] VITALS: BP 149/101; PULSE 76; O2SAT 98
[2020-10-13 01:30] VITALS: BP 140/93; PULSE 75; RESP 17; O2SAT 98
[2020-10-13 01:50] LABS: Eosinophils % 1 % (0-3); Lymphocytes % 7 % (10-50); Monocytes % 4 % (2-9); Neutrophils % 88 % (42-76); Platelet Estimate Normal; RBC Morphology Normal; Total Cells Counted 100
[2020-10-13 01:51] LABS: Troponin I < 0.01 ng/ml (0.00-0.034)
[2020-10-13 02:07] VITALS: BP 140/93; PULSE 72; RESP 16; TEMP 36.6; O2SAT 97
--- NOTE | 2020-10-13 23:54 | XR_ITS ---
PROCEDURE: XR CHEST 2V CLINICAL HISTORY: left shoulder left arm pain, r/o cardiac COMPARISON: CR CXR1VP XR chest portable from 10/13/2017 CR CXR2V XR chest 2V from 07/18/2018 FINDINGS: The cardiomediastinal silhouette and pulmonary vascularity are within normal limits. The lungs are clear without infiltrates, suspicious nodules, or pleural effusions. No acute bony abnormalities. IMPRESSION: No acute findings. Dictated by: Bakari Lazar MD 10/13/2020 06:56 Bakari Lazar MD in [place] 10/13/2020 06:56
== END 2020-10-13 02:08 | disposition home or self-care (01) ==
PROVIDERS: Emergency Provider Emergency Medicine; PCP Family Medicine
DX: R11.2 Nausea with vomiting, unspecified (principal); R07.9 Chest pain, unspecified; I10 Essential (primary) hypertension; E78.5 Hyperlipidemia, unspecified; E03.9 Hypothyroidism, unspecified; Z79.899 Other long term (current) drug therapy
CPT/HCPCS: 71046; 80053; 82150; 83690; 84484; 85007; 85025; 93005; 96365; 96375; 99282; J2405

== ENCOUNTER → 2020-10-25 08:35 | Outpatient (CLI) | payer OTHER, SELFPAY ==
--- NOTE | 2020-10-25 08:40 | US_ITS ---
PROCEDURE: US ABDOMEN LIMITED CLINICAL INDICATION: RUQ PAIN Right upper quadrant pain with vomiting COMPARISON: No exams were available for comparison FINDINGS: PANCREAS: Unremarkable. No obvious mass or abnormal fluid collection. No ductal dilatation LIVER: No focal liver lesions demonstrated. Homogeneous echogenicity. No intrahepatic biliary ductal dilatation evident. There is appropriate direction of blood flow within a non dilated portal vein RIGHT KIDNEY: Unremarkable. Normal size and echogenicity. No hydronephrosis GALLBLADDER: There is a small amount of sludge/debris within the gallbladder. No gallstones wall thickening or pericholecystic fluid. IMPRESSION: There is a mild amount of sludge in the gallbladder. Otherwise negative. No shadowing stones apparent Dictated by: Bakari Lazar MD 10/25/2020 16:38 Bakari Lazar MD in [place] 10/25/2020 16:38
--- NOTE | 2020-10-25 08:40 | FL_ITS ---
PROCEDURE: FL UPPER GI W AIR CLINICAL INDICATION: INTRACTABLE VOMITING W/NAUSEA Right-sided abdominal pain with nausea and vomiting COMPARISON: No exams were available for comparison FINDINGS: There is a small sliding hiatal hernia with a non constricting Schatzki's ring. No reflux was demonstrated during the exam. The stomach and duodenum have an unremarkable appearance. No mass or ulcerative lesion. IMPRESSION: Small sliding hiatal hernia otherwise negative Dictated by: Bakari Lazar MD 10/25/2020 14:54 Bakari Lazar MD in [place] 10/25/2020 14:54
== END ==
PROVIDERS: PCP Family Medicine; Visit Provider Family Medicine
DX: R10.11 Right upper quadrant pain (principal); R11.2 Nausea with vomiting, unspecified
CPT/HCPCS: 74246; 76705

== ENCOUNTER → 2021-05-03 13:33 | Outpatient (CLI) | payer OTHER, SELFPAY ==
--- NOTE | 2021-05-03 13:43 | XR_ITS ---
PROCEDURE: XR CHEST PORTABLE CLINICAL HISTORY: COVID OUTPATIENT Covid19 testing, cough COMPARISON: CR CXR1VP XR chest portable from 10/13/2017 CR CXR2V XR chest 2V from 07/18/2018 CR XR CHEST 2V from 10/13/2020 FINDINGS: The cardiomediastinal silhouette and pulmonary vascularity are within normal limits. The lungs are clear without infiltrates, suspicious nodules, or pleural effusions. No acute bony abnormalities. IMPRESSION: No acute findings. Dictated by: Dr. Gage Camilo MD 05/03/2021 13:53 Dr. Gage Camilo MD in [place] 05/03/2021 13:53
[2021-05-03 15:19] LABS: Basophils % 0.4 % (0.1-2.0); Eosinophils % 0.8 % (0.1-12.0); Hematocrit 46.4 % (42.0-52.0); Hemoglobin 15.9 g/dL (14.1-18.0); Lymphocytes # 1.5 K/mm3 (0.7-4.5); Lymphocytes % 37.6 % (10-50); Mean Corpuscular HGB Conc 34.3 g/dL (31.8-35.4); Mean Corpuscular Hemoglobin 31.9 pg (27.0-31.2); Mean Corpuscular Volume 92.8 fl (80-94); Mean Platelet Volume 8.3 fl (7.4-10.4); Monocytes # 0.3 K/mm3 (0.1-1.0); Monocytes % 8.2 % (1.7-9.3); Neutrophils # 2.2 K/mm3 (1.8-7.8); Neutrophils % 52.9 % (37.0-80.0); Platelet Count 199 K/mm3 (142-424); Red Blood Count 4.99 M/mm3 (4.60-6.20); Red Cell Distribution Width 13.1 % (11.5-17.5); White Blood Count 4.1 K/mm3 (4.8-10.8)
== END ==
PROVIDERS: PCP Physician Assistant; Visit Provider Physician Assistant
DX: Z20.822 Contact with and (suspected) exposure to COVID-19 (principal); U07.1 COVID-19
CPT/HCPCS: 36415; 71045; 85025; C9803; U0003; U0005

== ENCOUNTER → 2021-05-05 07:42 | Outpatient (CLI) | payer OTHER, SELFPAY ==
[2021-05-05] VITALS (9 sets, daily range): BP systolic 103–124; BP diastolic 57–79; PULSE 62–79; RESP 17–18; TEMP 37.3; O2SAT 96–100
== END ==
PROVIDERS: PCP Family Medicine; Visit Provider Physician Assistant
DX: U07.1 COVID-19 (principal); Z23 Encounter for immunization
CPT/HCPCS: 96365

== ENCOUNTER 2023-05-11 14:31 | Emergency (ER) | payer OTHER, SELFPAY ==
[2023-05-11 15:25] VITALS: BP 123/76; PULSE 67; RESP 18; TEMP 36.8; O2SAT 99; BMI 30.7
--- NOTE | 2023-05-11 15:56 | EXP.UTC ---
Discharge Plan Disposition Patient Disposition: Home, Self-Care Condition: Good Prescriptions Prescriptions: No Action aspirin [Adult Low Dose Aspirin] 81 mg tablet,delayed release (DR/EC) 81 mg PO DAILY pravastatin 40 MG tablet 40 mg PO DAILY metoprolol succinate 25 MG tablet extended release 24 hr 25 mg PO HS lisinopril 20 MG tablet 20 mg PO DAILY ondansetron 4 MG tablet,disintegrating 4 mg PO TIDP PRN (Reason: Vomiting) Qty: 12 0RF Referrals Follow up/Referrals: Erasmo Harrison MD [Primary Care Provider] - See instructions Activity Restrictions/Add. Instructions Additional Instructions/Restrictions: Drink extra fluids with and between meals. If you have difficulty drinking, try very small amounts of water or suck on ice chips. ? Avoid fruit juices, as these do not replace minerals and can actually increase diarrhea. ? Children and adults can use sports drinks to replenish electrolytes. Younger children and infants should use products formulated for children, like oral rehydration solutions. ? Eat food in small amounts and let your stomach recover. ? Get lots of rest. You may feel tired or weak. ? No greasy or fried foods for the next 24-48 hours BRAT diet Bananas Rice Apples and [place] ? Make sure to drink plenty of liquids ? Return if needed ? Straight to ER if any life threatening symptoms ? Zofran as prescribed ? Follow up with family doctor in the next 48-72 hours if no improvement or any worsening of symptoms Clinical Impressions Clinical Impression: Viral syndrome Instructions Patient Instructions: Diarrhea, DI for Headache Discharge ED Provider: Bethanie Grant [facility] General Stated complaint: diarrhea, TAN Mode of Arrival: Ambulatory Source of Information: Patient Limitations: No Limitations Time Seen by Provider: 05/11/23 15:56 Description of Symptoms (Recalled from Triage Doc. by RN): PATIENT C/O DIARRHEA AND HEADACHE SINCE YESTERDAY HEENT Symptoms (Recalled from RN notes): Yes Resp Symptoms (Recalled from RN notes): No Skin Symptoms (Recalled from RN notes): No MS Symptoms (Recalled from RN notes): No Functional Status (Recalled from RN notes): WNL History of Present Illness Provider Complaint: Patient states that he started yesterday with headache and diarrhea States that diarrhea stopped around 1130 today and his headache is better but he had these symptoms the last time he had COVID and wanted to get tested for COVID Related Data Home Medications Medication Instructions Recorded Confirmed metoprolol succinate 25 mg 25 mg PO HS BLOOD PRESSURE 10/13/17 11/07/20 tablet,extended release 24 hr aspirin 81 mg tablet,delayed 81 mg PO DAILY Heart disease 02/23/18 11/07/20 release (Adult Low Dose Aspirin) pravastatin 40 mg tablet 40 mg PO DAILY Cholesterol 07/18/18 11/07/20 lisinopril 20 mg tablet 20 mg PO DAILY htn 10/12/20 11/07/20 Previous Rx's Medication Instructions Recorded ondansetron 4 mg disintegrating 4 mg PO TIDP PRN Vomiting #12 tabs 10/13/20 tablet Allergies Allergy/AdvReac Type Severity Reaction Status Date / Time No Known Drug Allergies Allergy Unknown Verified 11/07/20 14:29 [NKDA] Worker's Comp Is this a Worker's Comp case?: No [facility] Disclaimer: The information contained in this section may have been updated after the patient was seen, as this information can be updated by other users. Medical History (Updated 05/11/23 @ 16:08 by Bethanie Grant APRN) Atrial fibrillation Hyperlipidemia Hypertension Social History Smoking Status: Never smoker alcohol intake: current substance use type: marijuana current occupational status: employed Travel in the last 8 weeks: None household members: spouse and family housing: house current occupation: self employed farm current occupational exposures/haz
[2023-05-11 16:05] VITALS: BP 123/76; PULSE 67; RESP 18; TEMP 36.8; O2SAT 99
[2023-05-11 16:27] LABS: UTC Influenza A Antigen Negative (Negative); UTC Influenza B Antigen Negative (Negative)
== END 2023-05-11 16:29 | disposition home or self-care (01) ==
PROVIDERS: Emergency Provider Nurse Practitioner; PCP Family Medicine
DX: R51.9 Headache, unspecified (principal); R19.7 Diarrhea, unspecified; B34.9 Viral infection, unspecified; I48.0 Paroxysmal atrial fibrillation; I10 Essential (primary) hypertension; E78.5 Hyperlipidemia, unspecified
CPT/HCPCS: 87635; 87804; 99203; 99212; G0463

== ENCOUNTER 2023-07-28 09:03 | Emergency (ER) | payer OTHER, SELFPAY ==
[2023-07-28 09:04] VITALS: BP 130/78; PULSE 60; RESP 18; TEMP 36.8; O2SAT 98; BMI 31.1
--- NOTE | 2023-07-28 09:13 | XR_ITS ---
FINAL REPORT CLINICAL HISTORY: fall FINDINGS: 2 views of the right humerus were obtained. There is no acute fracture or dislocation. The joint spaces appear intact. There is no acute soft tissue abnormality. IMPRESSION: No acute process. Reviewed, Interpreted and Dictated by Josep Davis MD Transcribed by Christopher Aguilar Authenticated and [facility]
--- NOTE | 2023-07-28 09:13 | XR_ITS ---
FINAL REPORT CLINICAL HISTORY: fall FINDINGS: 3 views of the right shoulder were obtained. There is no acute fracture or dislocation. There is mild AC joint degenerative change. There are no soft tissue abnormalities. IMPRESSION: No acute process. Reviewed, Interpreted and Dictated by Josep Davis MD Transcribed by Christopher Aguilar Authenticated and [facility]
--- NOTE | 2023-07-28 09:29 | EXP.UTC ---
Discharge Plan Disposition Patient Disposition: Home, Self-Care Condition: Good Prescriptions Prescriptions: No Action aspirin [Adult Low Dose Aspirin] 81 mg tablet,delayed release (DR/EC) 81 mg PO DAILY pravastatin 40 MG tablet 40 mg PO DAILY metoprolol succinate 25 MG tablet extended release 24 hr 25 mg PO HS lisinopril 20 MG tablet 20 mg PO DAILY Referrals Follow up/Referrals: Erasmo Harrison MD [Primary Care Provider] - See instructions Nic Hidalgo DO [Staff Physician] - See instructions Activity Restrictions/Add. Instructions Additional Instructions/Restrictions: Rest the extremity, apply ice for 15 minutes as tolerated three or four times per day, Wear the marc wrap for compression, Elevate the extremity as tolerated while you are resting. Take ibuprofen (if you can take this) or tylenol for pain. Follow up with Dr. Hidalgo (orthopedics). I put in a referral but you need to call his office and schedule an appointment. Follow up with your regular doctor. GO TO THE ER FOR ANY WORSENING SYMPTOMS Clinical Impressions Clinical Impression: Pain in right shoulder, Arm pain, right, Fall Instructions Patient Instructions: DI for Shoulder Pain, DI for Arm Pain Discharge ED Provider: Shimon Dee [facility] General Stated complaint: right shoulder pain Mode of Arrival: Ambulatory Source of Information: Patient Limitations: No Limitations Time Seen by Provider: 07/28/23 09:29 Description of Symptoms (Recalled from Triage Doc. by RN): [place] stated [place] and hit his right shoulder. He stated that he does have ROM, but hurts to raise it. He stated that the pain radiates to his wrist sometimes. He stated that he rated his pain an 8/10. 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 Since then he has had right shoulder and upper arm pain. He denies any other injury. Related Data Home Medications Medication Instructions Recorded Confirmed metoprolol succinate 25 mg 25 mg PO HS BLOOD PRESSURE 04/10/18 01/23/24 tablet,extended release 24 hr aspirin 81 mg tablet,delayed 81 mg PO DAILY Heart disease 02/23/18 07/28/23 release (Adult Low Dose Aspirin) pravastatin 40 mg tablet 40 mg PO DAILY Cholesterol 07/18/18 07/28/23 lisinopril 20 mg tablet 20 mg PO DAILY htn 10/12/20 07/28/23 Allergies Allergy/AdvReac Type Severity Reaction Status Date / Time No Known Drug Allergies Allergy Unknown Verified 07/28/23 09:21 [NKDA] Worker's Comp Is this a Worker's Comp case?: No [facility] Disclaimer: The information contained in this section may have been updated after the patient was seen, as this information can be updated by other users. Medical History (Updated 07/28/23 @ 11:31 by Shimon Dee APRN) Atrial fibrillation Hyperlipidemia Hypertension Social History Smoking Status: Never smoker alcohol intake: current substance use type: marijuana current occupational status: employed Travel in the last 8 weeks: None household members: spouse and family housing: house current occupation: self employed farm current occupational exposures/hazards: No caffeine: Yes ROS Obtained: Yes All systems reviewed & no additional complaints except as documented Constitutional Constitutional: Denies chills and Denies fever(s) Eyes Eyes: Denies eye discharge ENT Ears, Nose, Mouth, and Throat: Denies dizziness, Denies otalgia and Denies sore throat Cardiovascular Cardiovascular: Denies chest pain Respiratory Respiratory: Denies shortness of breath, Denies chest congestion, Denies cough, Denies stridor and Denies wheezing Gastrointestinal Gastrointestingal: Denies nausea or vomiting Musculoskeletal Musculoskeletal: Reports as per HPI Integumentary/Breasts Skin/Breast: Denies rash Neurologic Neurologic: Denies dizziness and Denies paresthesias Allergic/Immunologic Allergic/Immunologic: Denies wheezing Physical Exam General General appearance: alert and in no apparent distress Head Head exam: atraumatic, normocephalic and normal inspection Eye Eye exam: Present normal appearance, PERRL and EOMI ENT ENT exam: Present normal exam, normal oropharynx, mucous membranes moist, TM's normal bilaterally and normal external ear exam Neck Neck exam: Present normal inspection, full ROM and trachea midline; Absent meningismus or lymphadenopathy Chest Chest inspection: Present normal inspection and symmetric chest wall rise; Absent tenderness Respiratory Respiratory exam: Present normal lung sounds bilaterally; Absent respiratory distress Cardiovascular Cardiovascular exam: Present regular rate and normal rhythm; Absent JVD Abdominal Exam Abdominal exam: Present soft and normal bowel sounds; Absent distention, tenderness or guarding Extremities Exam Extremities exam: Present normal capillary refill; Absent calf tenderness Expanded Upper Extremity Exam Right: Shoulder exam: Present tenderness; Absent full ROM, swelling, abrasion, laceration, ecchymosis, deformity, crepitus, dislocation, erythema or tenderness over AC joint Arm exam: Present full ROM and tenderness; Absent swelling, abrasion, laceration, ecchymosis, deformity, crepitus or erythema Elbow exam: Present normal inspection and full ROM; Absent tenderness or pain w/ pronation/supination Forearm/Wrist exam: Present normal inspection and full ROM; Absent tenderness Hand exam: Present normal inspection and full ROM; Absent tenderness Neuromotor exam: Normal wrist extension, thumb opposition, thumb IP flexion, thumb adduction and fingers 2-5 abduction Neurosensory exam: Normal radial nerve and ulnar nerve Vascular exam: Normal capillary refill, radial pulse and ulnar pulse Back Exam Back exam: Present normal inspection; Absent tenderness Neurological Exam Neurological exam: Present alert and oriented X3 Psychiatric Psychiatric exam: Present normal affect and normal mood Skin Skin exam: Present warm, dry, intact and normal color Lymphatic Lymphatic Findings: no adenopathy Medical Decision Making Medical Records Medical records reviewed: No I reviewed the patient's medical records. Ric Inquiry Pt receiving controlled substance: No Vital Signs: 07/28/23 09:04 Temperature 98.2 F Temperature Source Oral Pulse Rate [Right Radial] 60 Respiratory Rate 18 Blood Pressure [Right Arm] 130/78 Blood Pressure Mean [Right Arm] 95 Blood Pressure Source [Right Arm] Automatic Cuff Blood Pressure Position [Right Arm] Sitting 02 Sat by Pulse Oximetry 98 Oxygen Delivery Method Room Air Orders (Tests/Meds): ORDERS Category Date Time Status Humerus XR right [XR humerus RT] Stat Exams 07/28/23 09:13 Ordered XR shoulder RT min 2V Stat Exams 07/28/23 09:13 Ordered Radiology Data #1: Image(s): Shoulder Image Reviewed: Yes I reviewed the patient's radiology image and Yes I have reviewed radiologist's interpretation Preliminary Findings: Normal/NAD and No Fracture Seen FINAL REPORT CLINICAL HISTORY: fall FINDINGS: 3 views of the right shoulder were obtained. There is no acute fracture or dislocation. There is mild AC joint degenerative change. There are no soft tissue abnormalities. IMPRESSION: No acute process. Reviewed, Interpreted and Dictated by Josep Davis MD Transcribed by Christopher Aguilar Authenticated and [facility]: Image(s): Humerus Image Reviewed: Yes I reviewed the patient's radiology image and Yes I have reviewed radiologist's interpretation Preliminary Findings: Normal/NAD and No Fracture Seen FINAL REPORT CLINICAL HISTORY: fall FINDINGS: 2 views of the right humerus were obtained. There is no acute fracture or dislocation. The joint spaces appear intact. There is no acute soft tissue abnormality. IMPRESSION: No acute process. Reviewed, Interpreted and Dictated by Josep Davis MD Transcribed by Christopher Aguilar Authenticated and [facility] Procedures Risk/Benefits of Procedure(s) Were Explained: Yes Orthopedic Splinting/Casting Injury #1: Side: right Upper Extremity Injury Location: upper arm Upper Extremity Immobilizer: Marc wrap and applied by nurse/dr munoz Post Cast/Splinting Neuro Status: intact and no change Post Cast/Splinting Vasc Status: intact and no change
[2023-07-28 11:39] VITALS: BP 130/78; PULSE 60; RESP 18; TEMP 36.8; O2SAT 98
== END 2023-07-28 11:39 | disposition home or self-care (01) ==
PROVIDERS: Emergency Provider Nurse Practitioner Family; PCP Family Medicine
DX: M79.601 Pain in right arm (principal); M25.511 Pain in right shoulder; E78.5 Hyperlipidemia, unspecified; I10 Essential (primary) hypertension; W19.XXXA Unspecified fall, initial encounter
CPT/HCPCS: 73030; 73060; 99212; 99214; G0463

== ENCOUNTER 2023-09-08 18:39 | Outpatient (CLI) | payer OTHER, SELFPAY ==
--- NOTE | 2023-09-08 18:40 | MR_ITS ---
PROCEDURE INFORMATION: Exam: MR Right Upper Extremity Joint Without Contrast; Shoulder Exam date and time: 09/08/2023 6:32 PM Age: 53 years old Clinical indication: Pain; Shoulder; Right; Additional info: RT shoulder pain TECHNIQUE: Imaging protocol: Magnetic resonance imaging of the right upper extremity without contrast. Exam focused on the shoulder. COMPARISON: CR XR SHOULDER RT MIN 2V 07/28/2023 9:24 AM FINDINGS: Bones/joints: Mild marrow edema is visualized involving the greater tuberosity. Additional osseous cystic/edematous changes are visualized involving the humeral head. A small glenohumeral joint effusion is identified. Acromioclavicular arthropathy is identified, with effacement of the underlying tissue planes. A minimal acromioclavicular joint effusion is identified. Osseous cystic change is seen within the adjacent acromion process, secondary to arthropathy. There is glenoid cartilage thinning/loss. No dislocation of the shoulder. Glenoid labrum: Increased PD signal intensity is visualized within the posterosuperior aspect of the labrum, with suggested labral tear. A tiny focus of increased T2 signal intensity is noted within the anterior aspect of the labrum on series 3, image 15, also suggestive of labral tear. Supraspinatus tendon: A full-thickness tear is identified of the supraspinatus tendon, with approximately 0.5 cm of retraction. Fluid is identified within this defect as well as the subdeltoid/subacromial bursa. Tendinosis is also visualized of the supraspinatus tendon. Infraspinatus tendon: Tendinosis visualized of the infraspinatus tendon. A partial undersurface tear is identified. A full-thickness tear is identified involving the anterior fibers of this tendon. Increased T2 signal intensity or partial tear is identified at the musculotendinous junction. Subscapularis tendon: Heterogeneous signal intensity of the subscapularis tendon, consistent with tendinosis and possible partial tear. Teres minor tendon: No evidence of tear. Tendon of biceps brachii: Tendinosis is visualized of the proximal long of the biceps tendon. This tendon is intact within the bicipital groove. Glenohumeral ligaments: Increased T2 signal intensity is identified involving the inferior glenohumeral ligament. Differential considerations include adhesive capsulitis, post-traumatic change, and partial tear. Soft tissues: No significant soft tissue swelling. Minimal edema within the rotator cuff interval. IMPRESSION: 1. A full-thickness tear is identified of the supraspinatus tendon, with retraction. Fluid is identified within this defect as well as the subdeltoid/subacromial bursa. Tendinosis is also visualized of the supraspinatus tendon. 2. Tendinosis visualized of the infraspinatus tendon. A full-thickness tear is identified involving the anterior fibers of this tendon. Partial tear(s) also visualized. 3. Heterogeneous signal intensity of the subscapularis tendon, consistent with tendinosis and possible partial tear. 4. Tendinosis is visualized of the proximal long of the biceps tendon. 5. Mild marrow edema is visualized involving the greater tuberosity. Additional osseous cystic/edematous changes are visualized involving the humeral head. 6. A small glenohumeral joint effusion is identified. 7. Acromioclavicular arthropathy is identified, with effacement of the underlying tissue planes. 8. Suggested labral tears. 9. Increased T2 signal intensity is identified involving the inferior glenohumeral ligament. Differential considerations include adhesive capsulitis, post-traumatic change, and partial tear. 10. Additional findings described above.
== END 2023-09-08 23:59 ==
LOC: RAD 18:40
PROVIDERS: PCP Family Medicine; Visit Provider Orthopaedic Surgery
DX: M25.811 Other specified joint disorders, right shoulder (principal)
CPT/HCPCS: 73221

== ENCOUNTER 2024-04-22 09:06 | Outpatient (CLI) | payer OTHER, SELFPAY ==
--- NOTE | 2024-04-22 09:39 | ECG_ITS ---
APPROVED REPORT Exam: Resting ECG HR:66 bpm ECG Measurements Heart Rate 66 AXES PA 169 P 52 QRSd 96 QRS 43 QT 370 T 55 QTc 383 Conclusion SINUS RHYTHM NORMAL ECG UNCONFIRMED REPORT Electronically signed by : Manuel Kelly MD 04/24/2024 13:54:16
[2024-04-22 09:49] VITALS: BMI 30.9
[2024-04-22 10:00] LABS: Basophils # 0.1 K/mm3 (0-0.2); Basophils % 0.6 % (0.1-2.0); Eosinophils # 0.4 K/mm3 (0.0-0.4); Hematocrit 44.4 % (42.0-52.0); Hemoglobin 15.6 g/dL (14.1-18.0); Lymphocytes # 2.1 K/mm3 (0.7-4.5); Lymphocytes % 30.6 % (10-50); Mean Corpuscular HGB Conc 35.2 g/dL (31.8-35.4); Mean Corpuscular Volume 90.9 fl (80-94); Mean Platelet Volume 7.2 fl (7.4-10.4); Monocytes # 0.4 K/mm3 (0.1-1.0); Monocytes % 5.5 % (1.7-9.3); Neutrophils % 57.3 % (37.0-80.0); Platelet Count 265 K/mm3 (142-424); Red Blood Count 4.89 M/mm3 (4.60-6.20); Red Cell Distribution Width 13.4 % (11.5-17.5)
[2024-04-22 10:06] LABS: Chloride 106 mmol/L (98-107); Sodium 140 mmol/L (136-145)
[2024-04-22 10:07] LABS: Potassium 3.9 mmoL/L (3.5-5.1)
[2024-04-22 10:09] LABS: Blood Urea Nitrogen 16 mg/dl (9-20); Creatinine Clearance Estimated 163 mL/min (50-200); Estimated Glomerular Filt Rate 102 ml/min (>60); GFR (African American) 123 ML/MIN (>60)
[2024-04-22 10:10] LABS: Anion Gap 11.9 mEq/L (5-15); Calcium 9.6 mg/dl (8.4-10.2); Carbon Dioxide 26 mmol/L (22.0-30.0); Glucose 113 mg/dl (74-100)
== END 2024-04-22 23:59 | disposition home or self-care (01) ==
LOC: PREOP 09:07
PROVIDERS: Nurse Anesthetist, Certified Registered; PCP Family Medicine; Visit Provider Orthopaedic Surgery
DX: Z01.810 Encounter for preprocedural cardiovascular examination (principal); Z01.812 Encounter for preprocedural laboratory examination
CPT/HCPCS: 80048; 85025; 93005

== ENCOUNTER 2024-04-29 06:05 | Day surgery (SDC) | payer OTHER, SELFPAY ==
[2024-04-22 09:44] VITALS: BMI 30.9
[2024-04-29] VITALS (8 sets, daily range): BP systolic 121–163; BP diastolic 74–99; PULSE 60–87; RESP 16–19; TEMP 36.2–36.6; O2SAT 93–97
[2024-04-29] MEDS: LACTATED RINGERS 1000ML 1,000 ML 100 ML IV (06:31)
--- NOTE | 2024-04-29 07:07 | P.PNANES_ITS ---
[facility] Disclaimer: The information contained in this section may have been updated after the patient was seen, as this information can be updated by other users. Medical History Hyperlipidemia Hypertension Atrial fibrillation Surgical History History of hemorrhoidectomy History of hernia repair Family History Other No significant family history Social History (Updated 04/29/24 @ 06:25 by Ioana Anderson RN) Smoking Status: Never smoker alcohol intake: never substance use type: marijuana current occupational status: employed Travel in the last 8 weeks: None household members: spouse and family housing: house current occupation: self employed farm current occupational exposures/hazards: No caffeine: Yes [facility] Anesthesia Checklist Patient Identification Patient Identification: Arm Band, Family and Verbal (Name & ) Structural Data Admitted From: Home Planned Operative Procedure/s: RT. Shoulder scope w/RC Repair Consent for Planned Operative Procedure(s) Verified: Yes Verified Documents: Surgical Consent and History and Physical NPO Status Verified Time NPO: 22:00 Chart Verification Results Verified: CBC, BMP, ECG and Chest Xray Additional verifications Patient : No Anesthesia Reactions: No Hx Blood Transfusions: No Blood Transfusion Reaction: No Cardiovascular Assessment Heart Sounds: S1 & S2 Pulse Rhythm: Irregular Peripheral Edema: No Airway Assessment Mallampati Score:: Class II C-Spine Mobility Assessed: Yes (FROM demonstrated) TMJ Mobility Assessed: Yes Dentition: Good Dentition (Nothing loose per pt.) Neurological Assessment Level of Consciousness: Awake, Alert, Appropriate and Follows Commands Hx Seizures: No Numbness or tingling in extremities: No Anesthesia Plan Anesthesia Risk discussed: Yes Anesthesia Plan: Verified ASA Class: II Anesthesia Type: General w/block
[2024-04-29] MEDS: CEFAZOLIN SODIUM 2 GM in 0.9 % SODIUM CHLORIDE 100 ML IV (08:00)
[2024-04-29] MEDS: EPINEPHrine 1 MG/ML AMPUL 2 MG (08:10)
--- NOTE | 2024-04-29 09:30 | P.OP_ITS ---
Date of procedure: 04/29/24 Pre-op Diagnosis:: Right shoulder rotator cuff tear Right shoulder labral tear Right shoulder impingement Post-op Diagnosis:: 1. Right shoulder full-thickness rotator cuff tear 2. Right shoulder SLAP tear 3. Right shoulder impingement subacromial bursitis Procedure performed:: 1. Right shoulder arthroscopy with rotator cuff repair 2. Right shoulder arthroscopy SLAP repair 3. Right shoulder arthroscopy with subacromial decompression acromioplasty with bursectomy Surgeon:: Nic Hidalgo DO Investment Counselor(s):: Robby SCOTT [employer] MARKETING ANALYST:: David Bhagat Anesthesia: GETA and regional Estimated blood loss (mL): 0 Operative findings:: Full-thickness rotator cuff tear Superior labral tear anterior to posterior impingement with subacromial bursitis Operative note:: Patient was identified preoperatively. Right shoulder marked with yes my initials. Then underwent a block with anesthesia. Then taken to the operating room placed upon operating bed general anesthesia administered and airway secured. Then placed in a lateral position on the operating table with the beanbag all bony prominences well-padded and a axillary roll placed. Right arm was then placed inline traction. Right shoulder then prepped and draped normal sterile fashion. Once prepped and draped final operative timeout performed to identify proper patient procedure and extremity. Everyone involved in the case agreed. There were no counter indications to beginning. Did receive preoperative antibiotics. Marking pen was used to silvai the bony landmarks of the shoulder and standard portal sites. Skin knife is used to incise standard posterior viewing portal and blunt with trocar was placed in the glenohumeral joint. This was exchanged with a camera. I moved directly anteriorly just above the subscapularis tendon where the anterior working portal was made and switch with a purple cannula. Tensions then brought to the inner articular aspect of the shoulder. There was tearing of the anterior superior labrum and frayed tissue of the anterior labrum. This was debrided to stable rim. The glenoid was prepared. And 2 push lock anchors were placed to repair the superior labrum back to the glenoid rim this gave a stable repair. Biceps was frayed at the base but not torn. Intra-articular there is evidence of full-thickness rotator cuff tear evident undersurface debrided. Attention was then brought the subacromial space within the subacromial space there was bursitis present which was debrided in a lateral working portal was established with an 18-gauge needle and exchanged with a passport cannula. Bursectomy completed for visualization subacromial decompression performed with a 5.5 mm barrel bur. Attention was then brought to the rotator cuff edges debrided footprint debrided. Cuff grasper was placed and the cuff was able to be reduced back to footprint. Using speed fix method 2 anchors were placed to repair the rotator cuff back to footprint this gave good repair of the rotator cuff tissue back to the footprint. No further pathology was seen cameras removed the joint was drained skin closed with nylon stitch. Sterile dressing placed. Abduction pillow and sling placed. Patient waken taken recovery stable condition. Condition: stable Disposition: PACU Complications:: None apparent
--- NOTE | 2024-04-29 09:39 | EXP.ANES.I ---
[facility] Anesthesia Record Part I Anesthesia Record I Intake, IV Amount: 900 Hydration: Adequate Estimated blood loss (mL): 1 Urine output (mL): 0 Blood Products used (#): none Blood Pressure: 155/86 SaO2: 93 Pulse Rate: 82 Airway Patency: Patent Respiratory Rate: 16 Temperature: 97.1 F Patient is:: Drowsy and Stable Stable to PACU at:: 09:35
--- NOTE | 2024-04-29 13:18 | P.PNANES_ITS ---
[facility] Anesthesia Record Part II Anesthesia Record Part II Discharge Time: 10:05 Destination: Surgical Day Care (OP Surgery) PACU nurse assessment reviewed?: Yes Patient Condition:: Good Anesthesia Complications:: None Swallowing reflex intact?: Yes Airway Patency: Patent Cyanosis?: No Blood Pressure: 145/84 SaO2: 95 Respiratory Rate: 19 Pulse Rate: 78 Temperature: 98 F Mental Status: Alert & Oriented Pain level:: 0 Nausea and/or vomitting:: None Intake, IV Amount: 0 Hydration: Adequate
== END 2024-04-29 10:40 | disposition home or self-care (01) ==
PROVIDERS: PCP Family Medicine; Visit Provider Orthopaedic Surgery
PROC: (CPT 29805; principal; 2024-04-29 07:30)
DX: M75.121 Complete rotator cuff tear or rupture of right shoulder, not specified as traumatic (principal); S43.431A Superior glenoid labrum lesion of right shoulder, initial encounter; M75.51 Bursitis of right shoulder
CPT/HCPCS: 29827; 29826; 29807; 96374; C1713; J0690; J1100; J2250; J2405; J3010; J7120

== ENCOUNTER 2024-07-01 14:00 | Outpatient (RCR) | payer OTHER, SELFPAY ==
--- NOTE | 2024-06-22 09:50 | [facility]H.OTOPEV ---
OT Inpatient Evaluation Rehab OT Outpatient Eval Start: 06/22/24 08:46 Freq: Status: Active Protocol: Document 06/22/24 08:46 MICAH (Rec: 06/22/24 09:47 MICAH [id number]) E-signed By Samira Clark, OT Outpatient Therapy Subjective History Subjective History Pt is a 53 year old male who reports to therapy for initial evaluation to right shoulder. Pt originally fell in August 2023 resulting in a supraspinatus and SLAP tear. On 04/29/24 pt required the following procedures: 1. Right shoulder arthroscopy with rotator cuff repair 2. Right shoulder arthroscopy SLAP repair 3. Right shoulder arthroscopy with subacromial decompression acromioplasty with bursectomy. Pt is currently 8 weeks out from surgery. Pt is right hand dominant. He works as a fulltime [place] requiring extensive repetitive use of bilateral UE's. Pt does demonstrate with decreased AROM and strength at right shoulder. Pt is right hand dominant. Pt will continue to be seen for OT services in order to improve overall functional use of R UE. New diagnosis of cancer in past 12 No months? Chief Complaint Pain,Stiff,Weakness Symptom Type Ache,Throb,Sharp,Dull Symptoms Relieved By Rest/Positioning Symptoms Aggravated By Physical Activity,Lifting Prior Functional Limitations None Current Functional Limitations Reaching,Lifting,Housework, Dressing,Sleeping,Recreation Activity Symptom Description Intermittent,Activity Dependent Level of pain today (0-10) 0 Pain scale - at its best (0-10) 0 Pain scale - at its worst (0-10) 8 Shoulder/Elbow Eval Shoulder Objective Measurements Shoulder ROM Right Shoulder Abduction Active Range of 90 degrees Motion (degrees) Shoulder Flexion Active Range of Motion 95 degrees (degrees) Query Text: Shoulder External Rotation Active Range 20 degrees of Motion (degrees) Shoulder Internal Rotation Active Range 40 degrees of Motion (degrees) Shoulder MMT Shoulder Abduction Strength Grade 3+ Fair+ Shoulder Flexion Strength Grade 3+ Fair+ Shoulder External Rotation Strength 3+ Fair+ Grade Shoulder Internal Rotation Strength 3+ Fair+ Grade Shoulder Strength Patient Testing Sitting Position Elbow Objective Measurements QuickDASH Activities Please rate your ability to do the following activities in the last week by selecting the number below the appropriate response. 1. Open a tight or new jar. Severe difficulty 2. Do heavy territory manager general sales (e.g., wash Moderate difficulty perkins, floors). 3. Carry a shopping bag or briefcase. Moderate difficulty 4. Wash your back. Severe difficulty 5. Use a knife to cut food. Moderate difficulty 6. Recreational activities in which you Unable take some force or impact through your arm, shoulder, or hand (e.g., golf, hammering, tennis, etc.). 7. During the past week, to what extent Moderately has your arm, shoulder or hand problem interfered with your normal social activities with family, friends, neighbors or groups? 8. During the past week, were you Very limited limited in your work or other regular daily activites as a result of your arm, shoulder or hand problem? 9. Arm, shoulder or hand pain. Moderate 10. Tingling (pins and needles) in your Mild arm, shoulder or hand. 11. During the past week, how much Mild difficulty difficulty have you had sleeping because of the pain in your arm, shoulder or hand? Quick DASH 36 OT Outpatient Assessment Impairments Problems/Impairments Palpation Tenderness,Impaired Range of Motion,Impaired Strength,Impaired Endurance, Impaired Lifting,Impaired Dressing,Impaired Shower/ Bathing,Impaired Household Care,Impaired Work Activities, Subjective C/O Pain Prognosis Rehab Potential Good Clinical Impression Consistent with Diagnosis Yes Short Term Goals Number of Weeks 3 Increase Range of Motion Yes: Flex: 120 Abd: 120 ER: 50 IR: 50 Increase Strength Yes: 4-/5 throughout right shoulder Increase Endurance Yes: Pt will tolerate R shoulder exercises for ~20 minutes prior to rest. 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 Decrease Subjective C/O Pain Yes: 3/10 at worst Patient to be Ind w/ Advanced HEP Yes: Advanced strengthening Improve Quick Dash Score Yes: Activities: 25 or below Outpatient Therapy Plan of Care Treatment Plan May Include Therapeutic Exercise Including Home Yes Exercise Program Manual Therapy Techniques Yes Neuromuscular Re-education Yes Therapeutic Activities to Return to Yes Previous Functional/Work Level ADL/Self Care Education Yes Dry Needling Yes Thermal Modalities Yes Electrical Stimulation Yes Ultrasound/Phonophoresis Yes Iontophoresis Yes Orthotics/Bracing/Splinting Yes Massage Yes Eval/Re-Eval Yes Frequency Times per week 2 Duration Number of Weeks 6 Addendums This patient is a candidate for social No or vocational rehab? Patient/Guardian verbally acknowledges Yes understanding of treatment program and consents to further treatment? Patient/Guardian verbally acknowledges Yes understanding of diagnosis, prognosis and goals for treatment? Eval Complexity OT Charge 64284 - Moderate Complexity PHYSICIAN CERTIFICATION: I certify the specified therapy services for Roe Jimmy Tabares are required, authorized, and reviewed every 30 days.
== END 2024-07-01 23:59 | disposition home or self-care (01) ==
LOC: OT 14:00
PROVIDERS: PCP Family Medicine; Visit Provider Orthopaedic Surgery
DX: M25.511 Pain in right shoulder (principal); Z98.890 Other specified postprocedural states
CPT/HCPCS: 97014; 97110; 97140; 97166; G0283